=== PATIENT | female | born 1995 | race Hispanic/Latino ===

== ENCOUNTER 2018-12-19 18:00 | Emergency (ER) | payer OTHER, SELFPAY ==
[2018-12-19 18:51] LABS: RAPID GROUP A STREP POSITIVE (NEGATIVE)
[2018-12-19] MEDS ORDERED: IBUPROFEN 600 MG TABLET ONE (19:35)
[2018-12-19] MEDS ORDERED: CEFTRIAXONE SODIUM 1 GM ONE (19:35)
[2018-12-19] MEDS ORDERED: LIDOCAINE HCL-MPF 1% 2ML VIAL ONE (19:35)
== END 2018-12-19 20:00 | disposition home or self-care (01) ==
LOC: EDH 18:00
DX: J02.0 Streptococcal pharyngitis (principal); Z88.8 Allergy status to other drugs, medicaments and biological substances
CPT/HCPCS: 87804 ×2; 87880; 96372; 99283; J0696; J3490

== ENCOUNTER 2024-12-12 11:45 | Emergency (ER) | payer BC ==
[~2024-12-12] VITALS: Ht 157.5 cm; Wt 98.0 kg
[2024-12-12] MEDS: 0.9%NACL 1000ML 1,000 ML IV ONE (12:31)
--- NOTE | 2024-12-12 12:33 | ERN ---
General Chief Complaint: Nausea,Vomiting,Diarrhea Stated Complaint: DEHYRATION,DIARRHEA,VOMITING, UTI Time Seen by MD: 11:45 Time Seen by Midlevel: 11:45 Source: patient History of Present Illness Initial Comments The patient is a 29-year-old female presenting to the emergency department for evaluation of nausea, vomiting, diarrhea that has been ongoing for one week. She was diagnosed with a urinary tract infection week ago and started on antibiotics but states she is still having symptoms. Allergies: Coded Allergies: albuterol (Unverified Allergy, Unknown, 12/12/24) chlorpheniramine (Unverified Allergy, Unknown, 12/12/24) phenylephrine (Unverified Allergy, Unknown, 12/12/24) Past Medical History Past Medical History: Anemia Past Surgical History: None Female( History) LMP: Dec 05, 2024 ROS Dictation CONSTITUTIONAL: Negative except for HPI HEAD/FACE: Negative except for HPI EENT: Negative except for HPI RESPIRATORY: Negative except for HPI GASTROINTESTINAL/ABDOMINAL: Negative except for HPI GENITOURINARY: Negative except for HPI MUSCULOSKELETAL: Negative except for HPI INTEGUMENTARY: Negative except for HPI NEUROLOGICAL/PSYCH: Negative except for HPI HEMATOLOGIC/LYMPHATIC: Negative except for HPI All Systems Negative, Except as noted above. 13 point review of systems assessed and all negative except for above. Physical Exam Physical Exam Dictation Vital Signs reviewed General Appearance: Alert, oriented x 3, no acute distress, well developed, nourished. Head and Face: non-traumatic. Eyes: PERRL, pink conjunctivas, eyelid no trauma, anterior chamber with arcus senilis. Ears: Pinnas intact and no signs of trauma or erythema ear canals clear and no discharge TM no erythema Nose: No discharge, no bleeding. Oropharynx: Mouth normal, tongue pink, pharynx clear,no erythema, tonsils no exudates, no abscesses noted, mucous membrane moist Neck: Supple, non-tender, no thyromegaly, no masses, no JVD, no bruits Breast:Deferred Chest:No tenderness, no crepitus, no paradoxical movement, no retractions Lungs:Clear, well-ventilated, symmetric, no rales, no wheezing, no rhonchi, no stridor, good breath sounds bilaterally Heart: Regular rate, regular rhythm, no murmur, no gallops Vascular: no peripheral edema, Abdomen: Soft, positive bowel sounds, nondistended, no guarding, nontender, no rebound, no masses no hepatomegaly, no splenomegaly, no Hdez's sign, no hernias. Rectal: Deferred Genital: Deferred Neurological: Normal speech, motor function intact, sensory function intact Musculoskeletal: Neck nontender, full range of motion, back nontender, full range of motion, Extremities: nontender, full range of motion Skin: Color pink, dry, no turgor, no rash, no lacerations, no abrasions, no contusions. Lymphatic: Deferred Results Laboratory and Microbiology Lab and Micro Result Laboratory Tests Test 12/12/24 12:14 White Blood Count 11.7 K/uL (4.8-10.8) H Red Blood Count 5.33 MIL/uL (4.00-5.50) Hemoglobin 13.0 g/dL (12.0-16.0) Hematocrit 42.1 % (36-48) Mean Corpuscular Volume 79.0 fL (79-99) Mean Corpuscular Hemoglobin 24.4 pg (27.0-33.0) L Mean Corpuscular Hemoglobin Concent 30.9 g/dL (32.0-36.0) L Red Cell Distribution Width 13.8 % (11.0-15.5) Platelet Count 395 K/uL (130-400) Mean Platelet Volume 9.9 fL (7.5-10.5) Immature Granulocyte % (Auto) 0.3 % (0-1) Neutrophils (%) (Auto) 69.1 % (40.0-77.0) Lymphocytes (%) (Auto) 21.5 % (21.0-51.0) Monocytes (%) (Auto) 6.7 % (3.0-13.0) Eosinophils (%) (Auto) 2.1 % (0.0-8.0) Basophils (%) (Auto) 0.3 % (0.0-5.0) Neutrophils # (Auto) 8.1 K/uL (1.8-7.7) H Lymphocytes # (Auto) 2.5 K/uL (1.0-4.8) Monocytes # (Auto) 0.8 K/uL (0.1-1.0) Eosinophils # (Auto) 0.24 K/uL (0.00-0.70) Basophils # (Auto) 0.04 K/uL (0.00-0.20) Absolute Immature Granulocyte (auto 0.04 K/uL (0-1) Nucleated Red Blood Cells 0.0 % (0.0-0.19) Red Blood Cell Morphology See comments Urine Color COLORLESS (YELLOW) Urine Appearance CLEAR (CLEAR) Urine pH 7.5 (5.0-8.0) Urine Specific [place] 1.001 (1.001-1.031) Urine Protein NEGATIVE mg/dL (NEGATIVE) Urine Glucose (UA) NEGATIVE mg/dL (NEGATIVE) Urine Ketones NEGATIVE mg/dL (NEGATIVE) Urine Occult Blood NEGATIVE (NEGATIVE) Urine Nitrate NEGATIVE (NEGATIVE) Urine Bilirubin NEGATIVE mg/dL (NEGATIVE) Urine Urobilinogen 0.2 mg/dL (0.2-1.0) Urine Leukocyte Esterase 25 Beck/uL (NEGATIVE) H Urine RBC None /HPF (0-1) Urine WBC 2-5 /HPF (0-1) H Urine Squamous Epithelial Cells MOD /HPF (0-2) Urine Bacteria RARE /HPF (None Seen) Urine Yeast RARE /HPF (None Seen) Sodium Level 141 mmol/L (136-145) Potassium Level 3.7 mmol/L (3.5-5.1) Chloride Level 104 mmol/L (101-111) Carbon Dioxide Level 35 mmol/L (21-32) H Blood Urea Nitrogen 1 mg/dL (7-18) L Creatinine 0.5 mg/dL (0.5-1.0) Glomerular Filtration Rate Calc 131 mL/min (>90) Random Glucose 92 mg/dL (70-105) Hemoglobin A1c 5.7 % (4.0-6.0) Estimated Average Glucose (eAG) 117 mg/dL (70-126) Total Calcium 8.8 mg/dL (8.5-10.1) Total Bilirubin 0.7 mg/dL (0.2-1.0) Direct Bilirubin 0.1 mg/dL (0.0-0.3) Aspartate Amino Transf (AST/SGOT) 13 U/L (10-37) Alanine Aminotransferase (ALT/SGPT) 22 U/L (12-78) Alkaline Phosphatase 86 U/L (50-136) Total Protein 7.8 g/dL (6.0-8.3) Albumin 3.3 g/dL (3.5-5.0) L Lipase 51 U/L (16-77) Serum Test, Qualitative NEGATIVE (NEGATIVE) MDM MDM: Differential diagnosis: Primary polydipsia, dehydration, electrolyte abnormality, urinary tract infection There are no social concerns with this patient. Prescription drug management Prescriptions will include: Macrobid Medical management and examination interpretation discussions were had by me with other qualified healthcare professionals as indicated for the patient's care. ED Course Orders Procedure Category Date Status Time Cbc With Differential LAB 12/12/24 Complete 11:50 Basic Metabolic Panel LAB 12/12/24 Complete 11:50 Urinalysis Profile LAB 12/12/24 Complete 11:50 Lipase LAB 12/12/24 Complete 11:50 Hepatic Function Panel LAB 12/12/24 Complete 11:50 Testing, LAB 12/12/24 Complete Serum Hcg 11:50 Hemoglobin A1c LAB 12/12/24 Complete 11:50 0.9%Nacl 1000ml (Ns PHA 12/12/24 Complete 1000ml) 12:30 Current Medications Medications (Trade) Dose Ordered Sig/Zaida Route PRN Reason Start Time Stop Time Status Last Admin Dose Admin Sodium Chloride 1,000 ml @ 0 mls/hr ONCE ONCE IV 12/12/24 12:30 12/12/24 12:31 DC 12/12/24 12:31 Vital Signs Date Time Temp Pulse Resp B/P (MAP) Pulse Ox O2 Delivery O2 Flow Rate FiO2 12/12/24 11:48 98.2 91 16 127/88 99 Room Air* 0 21 12/12/24 11:48 98.2 91 16 127/88 99 Room Air 0 DX & DISP Disposition: Discharge Departure Impression: Primary Impression: Polydipsia Additional Impression: Urinary tract infection Condition: Stable Scripts Nitrofurantoin/Nitrofuran Mac (Macrobid) 100 Mg Cap 1 CAP PO BID for 5 Days, #10 CAP 0 Refills Prov: VAN HATHAWAY 12/12/24 Additional Instructions: Your blood work today is unremarkable. There were no signs of dehydration. Your electrolytes are normal. Your kidney function is normal. There was no evidence of systemic infection. Your urinalysis does show small amounts of white blood cells in your urine which may represent a urinary tract infection. I have given you a prescription for Macrobid. Given your persistent symptoms of excessive thirst it is recommended that you follow up with your primary care doctor so they can refer you to an collections assistant for further evaluation. Referrals: CARON RAY MD (PCP) I have reviewed the case, and I agree with, Diagnosis and Plan I performed the substantive portion of the visit. I have reviewed and personally made and approve the management plan that is documented in the note by myself or the SERGE. I acknowledge for responsibility for the patient's management plan. VAN HATHAWAY Dec 12, 2024 12:33
[2024-12-12 12:36] LABS: CREATININE 0.5 mg/dL (0.5-1.0); POTASSIUM 3.7 mmol/L (3.5-5.1)
[2024-12-12 12:40] LABS: ALBUMIN 3.3 g/dL (3.5-5.0); BILIRUBIN,DIRECT 0.1 mg/dL (0.0-0.3); BILIRUBIN,TOTAL 0.7 mg/dL (0.2-1.0); TOTAL PROTEIN, SERUM 7.8 g/dL (6.0-8.3)
[2024-12-12 12:59] LABS: BASOPHILS # (AUTO) 0.04 K/uL (0.00-0.20); BASOPHILS % (AUTO) 0.3 % (0.0-5.0); EOSINOPHILS # (AUTO) 0.24 K/uL (0.00-0.70); EOSINOPHILS % (AUTO) 2.1 % (0.0-8.0); HEMATOCRIT 42.1 % (36-48); IMMATURE GRANULOCYTE ABSOLUTE 0.04 K/uL (0-1); LYMPHOCYTES # (AUTO) 2.5 K/uL (1.0-4.8); LYMPHOCYTES % (AUTO) 21.5 % (21.0-51.0); MEAN CORPUSCULAR HEMOGLOBIN 24.4 pg (27.0-33.0); MEAN CORPUSCULAR HGB CONC 30.9 g/dL (32.0-36.0); MONOCYTES # (AUTO) 0.8 K/uL (0.1-1.0); MONOCYTES % (AUTO) 6.7 % (3.0-13.0); NEUTROPHILS # (AUTO) 8.1 K/uL (1.8-7.7); NEUTROPHILS % (AUTO) 69.1 % (40.0-77.0); PLATELET COUNT (AUTO) 395 K/uL (130-400); RED BLOOD CELL COUNT(AUTO) 5.33 MIL/uL (4.00-5.50); RED CELL DISTRIBUTION WIDTH 13.8 % (11.0-15.5); WHITE BLOOD COUNT (AUTO) 11.7 K/uL (4.8-10.8)
[2024-12-12 13:03] LABS: HEMOGLOBIN A1C 5.7 % (4.0-6.0)
[2024-12-12 13:04] LABS: APPEARANCE,URINE CLEAR (CLEAR); BILIRUBIN,URINE NEGATIVE (NEGATIVE); COLOR,URINE COLORLESS (YELLOW); GLUCOSE, URINE (UA) NEGATIVE (NEGATIVE); KETONES,URINE NEGATIVE (NEGATIVE); LEUKOCYTE ESTERASE ,URINE 25 Leu/uL (NEGATIVE); NITRATE,URINE NEGATIVE (NEGATIVE); OCCULT BLOOD,URINE NEGATIVE (NEGATIVE); PH,URINE 7.5 (5.0-8.0); PROTEIN,URINE NEGATIVE (NEGATIVE); UROBILINOGEN,URINE 0.2 mg/dL (0.2-1.0)
[2024-12-12 13:17] LABS: ADD UA MICROSCOPIC YES
[2024-12-12 13:21] LABS: BACTERIA,URINE RARE /HPF (None Seen); MUCUS,URINE RARE LPF (None Seen); SQUAMOUS EPITHELIAL CELL,UR MOD /HPF (0-2); YEAST,URINE BUDDING RARE /HPF (None Seen)
[2024-12-12] MEDS ORDERED: MACR100 PO (14:07)
[2024-12-12 14:28] VITALS: BP 111/64; PULSE 67; RESP 18; TEMP 98.5; O2SAT 99
== END 2024-12-12 14:30 | disposition home or self-care (01) ==
LOC: EDH 11:45
DX: R63.1 Polydipsia (principal); N39.0 Urinary tract infection, site not specified
CPT/HCPCS: 99283; 96360; 96361; 83036; 80076; 80048; 84703; 83690; 85025; 81001; 36415; J7030